=== PATIENT | female | born 1975 | race Caucasian/White ===

== ENCOUNTER 2023-04-04 12:20 | Inpatient (IN) ==
[2023-04-04 14:06] LABS: Albumin Globulin Ratio 1.5 (0.9-2); Albumin Level 4.5 gm/dl (3.4-5.0); BUN Creatinine Ratio 22.2 (10-20); Bilirubin,Total 2.9 mg/dl (0.2-1.0); Calcium 9.3 mg/dl (8.6-10.3); Est GFR (African American) 129.3 ml/min; Est GFR (Non-African American) 111.6 ml/min; Magnesium 1.9 mg/dl (1.7-2.4); Potassium 3.5 mmol/L (3.5-5.1); Total Protein 7.5 gm/dl (6.0-8.3)
[2023-04-04 14:10] LABS: Hematocrit (blood only) 21.1 % (37.0-47.0); Hemoglobin 6.9 g/dl (12.0-16.0); Mean Corpuscular Hemoglobin 28.3 pg (25.0-34.0); Mean Corpuscular Hgb Conc 32.7 g/dL (32.0-36.0); Mean Corpuscular Volume 86.5 fL (80.0-100.0); Mean Platelet Volume 9.8 fL (9.4-12.4); Nucleated RBC # (auto) 0.07 K/uL (0.00-0.12); Nucleated RBC % (auto) 1.9 %; Platelet Count 173 K/uL (130-400); RDW Coefficient of Variation 23.6 % (11.5-14.5); RDW Standard Deviation 63.7 fL (36.4-46.3); Red Blood Count 2.44 M/uL (4.20-5.40); White Blood Count 3.75 K/ul (4.8-10.8)
[2023-04-04 14:11] LABS: Anisocytosis Present; Basophils # (auto) 0.03 K/uL (0.00-0.20); Basophils % (auto) 0.8 %; Eosinophils # (auto) 0.05 K/uL (0.00-0.50); Eosinophils % (auto) 1.3 %; Immature Granulocytes # (auto) 0.08 K/uL (0.01-0.20); Immature Granulocytes % (auto) 2.1 %; Lymphocytes # (auto) 0.98 K/uL (1.20-3.40); Lymphocytes % (auto) 26.1 %; Monocytes # (auto) 0.41 K/uL (0.11-0.59); Monocytes % (auto) 10.9 %; Neutrophils % (auto) 58.8 %; Polychromasia 2+; Tear Drop Cells 1+
[2023-04-04 14:22] LABS: Partial Thromboplastin Ratio 0.9; Partial Thromboplastin Time 25.9 Seconds (21.0-31.0); Prothrombin Time 10.9 Seconds (9.0-12.0)
[2023-04-04 14:29] LABS: Monotest Negative (Negative)
[2023-04-04 14:49] LABS: Lyme Ab IgG w/WB Rflx Negative (Negative); Lyme Ab IgM w/WB Rflx Negative (Negative)
[2023-04-04] MEDS ORDERED: SODIUM CHLORIDE 0.9% 500 ML IV SCH (15:30)
[2023-04-04] MEDS ORDERED: OPTIRAY 320 100ml IV ONE (15:31)
--- NOTE | 2023-04-04 15:53 | CT Scan Report ---
CT OF THE HEAD WITHOUT CONTRAST CLINICAL HISTORY: Headache. COMPARISON STUDY: No previous studies for comparison. TECHNIQUE: Helical axial images of the head were obtained without IV contrast. Automated exposure con trol was utilized for the study. A dose lowering technique was utilized adhering to the principles o f ALARA. FINDINGS: No acute intracranial hemorrhage, midline shift or mass effect is present. The ventricular system is unremarkable. The basal cisterns are patent. No extra-axial collections are present. There are no findings to suggest acute dural sinus thrombosis or acute territorial infarct. No significant calvarial abnormalities are present. Visualized portions of the sinuses and mastoid air cells are oralia ar. IMPRESSION: No acute intracranial findings. ACT 112: Negative or not required by law. Electronically signed by: Lisandro Shaw M.D. 04/04/2023 3:52 PM
--- NOTE | 2023-04-04 16:02 | CT Scan Report ---
CT OF THE ABDOMEN AND PELVIS WITH CONTRAST CLINICAL HISTORY: Left upper quadrant pain. COMPARISON STUDY: None. TECHNIQUE: Following IV administration of 92 mL of Optiray, axial images of the abdomen and pelvis we re obtained from the lung bases to the proximal femurs. Images were reviewed in the axial, sagittal, and coronal planes. IV contrast was administered without complication. Automated exposure control wa s utilized for the study. A dose lowering technique was utilized adhering to the principles of ALARA . CT DOSE: 1951.28 mGy.cm FINDINGS: Lung bases are unremarkable. No pneumatosis, free air or portal venous gas is present. No h epatic lesions are present. There is probable hepatic steatosis. Mild hepatomegaly is noted. Liver me asures 20.2 cm in maximal dimension. No biliary or pancreatic ductal dilatation is present. The adren al glands, kidneys and pancreas are unremarkable. There is moderate splenomegaly. Spleen measures 17. 7 cm in craniocaudal dimension. There is no evidence for splenic injury. No perisplenic fluid is pres ent. Caliber and wall thickness of small and large bowel are normal. There is no ascites. There is no lymphadenopathy. The appendix is normal. Scattered colonic diverticula are present. There is no evid ence for acute diverticulitis. No acute fractures are identified within the visualized skeletal struc tures. IMPRESSION: 1. Moderate splenomegaly. No evidence for splenic injury. No perisplenic fluid. 2. Mild hepatomegaly and probable hepatic steatosis. 3. No bowel obstruction. No bowel wall thickening. Normal appendix. 4. Scattered colonic diverticula. No evidence for acute diverticulitis. ACT 112: Negative or not required by law. Electronically signed by: Lisandro Shaw M.D. 04/04/2023 4:00 PM
--- NOTE | 2023-04-04 16:05 | Emergency Department Note ---
History of Present Illness General Chief Complaint: Abnormal Labs/Diagnostic Testing Stated Complaint: ABNORMAL LABS, ANEMIA - REFERRED BY MD Time Seen by Provider: 04/04/23 13:19 History of Present Illness Provider Complaint: + abnormal lab Description of abnormal result: Low hemoglobin HPI narrative: 47-year-old female presents emergency department because she reports that her doctor told her she had hemolytic anemia. Patient reports she has never been diagnosed with hemolytic anemia however her family members have a history of spherocytosis. She reports she has been having pain in her left upper quadrant and headaches. She reports no vaginal bleeding or hematuria. No melena or hematochezia. No dysuria. Home Medications Medication Instructions Recorded Confirmed Type potassium chloride 10 mEq 10 meq PO DAILY #30 tabs 03/06/23 04/04/23 Rx tablet,extended release albuterol sulfate 90 mcg/actuation 2 puff inhalation Q4H PRN Wheezing 04/04/23 04/04/23 History aerosol inhaler epinephrine 0.3 mg/0.3 mL 0.3 mg IM DIRECTED 04/04/23 04/04/23 History injection, auto-injector folic acid 1 mg tablet 1 mg PO BID #60 tabs 04/04/23 04/04/23 Rx losartan 50 mg tablet 50 mg PO DAILY #30 tabs 04/04/23 04/04/23 Rx Allergies Allergy/AdvReac Type Severity Reaction Status Date / Time hydrochlorothiazide AdvReac hemolytic Verified 04/04/23 16:22 anemia Past Med/Surg History Medical History Abnormal glucose delivery delivered x2 Hypokalemia Resistant hypertension Restless legs Surgical History History of section x 2 2013, 2015 Family History Father , age 72 Diabetes, Onset Age: 70 Heart disease, Onset Age: 47 [place] age 47 CABG 60s Hole in heart repaired congenital Coronary heart disease Colonic polyp Sister Seizure Mother Hypertension Other Spherocytosis Denies family history of Ovarian cancer Prostate cancer Deep vein thrombosis Dyslipidemia Bipolar disorder Depression Myocardial infarction Breast cancer Lung cancer COPD (chronic obstructive pulmonary disease) Colorectal cancer Pulmonary embolism Cancer Asthma Social History Smoking Status: Former smoker Age Started Using Tobacco: 17; Age Quit Using Tobacco: 39; packs per day: 0.5; Second Hand Exposure: No; Do You Dip or Chew Tobacco: No; Hx Alcohol Use: Yes Alcohol type: wine Alcohol Intake Frequency: Monthly or Less Hx Substance Use: No Preferred Language: Kiswahili Communication Ability: Effective marital status: Current Living Situation: Family Current Living Situation Comment: and 3 children current occupational status: employed 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 How many Children do You have: 3 Feels Safe at Home: Yes Childhood Exposure to Second-Hand Smoke: No Diet: regular Dental Care, Regularly: No Physical Activity Frequency: 3-4 Times per Week Physical Exam Vital Signs: Vital Signs - 24 hr 04/04/23 12:28 04/04/23 15:00 Temperature 37.0 C Temperature Source Temporal Artery Sc an Pulse Rate 112 H Pulse Rate [Left F vee] 111 H Pulse Rhythm Regular Pulse Strength Normal Respiratory Rate 20 18 Respiratory Effort / Characteristics Non-Labored Sponta neous Respiratory Depth Normal Respiratory Patter n Regular Blood Pressure 149/80 H Blood Pressure [Le ft Arm] 122/76 Blood Pressure Reina n 103 Blood Pressure Reina n [Left Arm] 91 Blood Pressure Pos ition Sitting Blood Pressure Pos ition [Left Arm] Sitting Pulse Oximetry 97 94 Oxygen Delivery Me thod Room Air Room Air Sepsis Recent Feve r Within 48 Hours No Sepsis New/Unexpla ined Change in Men dorothy Status No Sepsis Action Take n by Nursing No Action Required Physical Exam: Physical Exam HENT: Exam performed. -Head: Normocephalic and atraumatic. -Mouth/Throat: The oropharynx is clear and moist. No trismus in the jaw. No dental abscesses or uvula swelling. No oropharyngeal exudate or tonsillar abscesses. EYES: Conjunctivae and EOM are normal. Pupils are equal, round, and reactive to light. Right eye exhibits no discharge. Left eye exhibits no discharge. No scleral icterus. NECK: Normal range of motion. Neck supple. No JVD present. CV: Normal rate, regular rhythm, normal heart sounds and intact distal pulses. There is no peripheral edema. Palpable radial pulses bue. PULM/CHEST: Effort normal and breath sounds normal. No respiratory distress. No stridor. She has no wheezes. She has no rales. ABD: The abdomen is soft. There is no tenderness. There is no rebound, no gu arding MUSC/SKEL: Normal range of motion. There is no peripheral edema, tenderness or deformity. LYMPH: No cervical adenopathy. NEURO: She is alert and oriented to person, place, and time. She has normal strength. No cranial nerve deficit or sensory deficit. Coordination and gait normal. GCS eye subscore is 4. GCS verbal subscore is 5. GCS motor subscore is 6. Cerebellar tests wnl. SKIN: Skin is warm and dry. She is not diaphoretic. PSYCH: She has a normal mood and affect. Behavior is normal. Judgment and thought content normal. Course Course 1319: The patient was evaluated in room C1. A complete history and physical exam was performed Cardiac monitoring: An order was placed for continuous cardiac monitoring. The monitor shows a rate of 100 with sinus rhythm interpreted by ok 1611: Vital signs stable. Labs show hemoglobin of 6.9. White blood cell count 3.75. Teardrop cells 1+ polychromasia 2+. Coagulation studies within normal limits. Total bilirubin 2.9 AST 82 ALT 64 mono babesiosis smear anaplasmosis smear Lyme negative. Discussed case with hematology oncology Dr. Granger. She recommends transfusing the patient 1 unit packed red blood cells, obtaining a folate level, serum iron level, B12 level, ferritin level total iron binding capacity level, haptoglobin level and to admit the patient to the medicine team. [facility] hospitalist team will be made aware. Administered Medications Discontinued Medications Ioversol (Optiray 320 100ml) 92 ml IV ONCE ONE Stop: 04/04/23 15:32 Last Admin: 04/04/23 15:32 Dose: 92 ml Documented By: ORACIO Medical Decision Making Laboratory Data Attestation: I reviewed the patient's lab results. 04/04/23 13:20 04/04/23 13:35 Lab Results 04/04/23 04/04/23 04/04/23 Range/Units 13:20 13:20 13:20 WBC 3.75 L (4.8-10.8) K/ul RBC 2.44 L (4.20-5.40) M/uL Hgb 6.9 L* (12.0-16.0) g/dl Hct 21.1 L (37.0-47.0) % MCV 86.5 (80.0-100.0) fL MCH 28.3 (25.0-34.0) pg MCHC 32.7 (32.0-36.0) g/dL RDW Std Deviation 63.7 H (36.4-46.3) fL RDW Coeff of Ophelia 23.6 H (11.5-14.5) % Plt Count 173 (130-400) K/uL MPV 9.8 (9.4-12.4) fL Immature Gran % (Auto) 2.1 % Neut % (Auto) 58.8 % Lymph % (Auto) 26.1 % [place] % (Auto) 10.9 % Eos % (Auto) 1.3 % Baso % (Auto) 0.8 % Neut # (Auto) 2.20 (1.40-6.50) K/uL Lymph # (Auto) 0.98 L (1.20-3.40) K/uL [place] # (Auto) 0.41 (0.11-0.59) K/uL Eos # (Auto) 0.05 (0.00-0.50) K/uL Baso # (Auto) 0.03 (0.00-0.20) K/uL Immature Gran # (Auto) 0.08 (0.01-0.20) K/uL Absolute Nucleated RBC 0.07 (0.00-0.12) K/uL Nucleated RBC % (auto) 1.9 % Polychromasia 2+ Anisocytosis Present Tear Drop Cells 1+ PT (9.0-12.0) Seconds INR (0.9-1.1) APTT (21.0-31.0) Seconds PTT Ratio Sodium (136-145) mmol/L Potassium (3.5-5.1) mmol/L Chloride (98-107) mmol/L Carbon Dioxide (21-32) mmol/L Anion Gap (3-11) BUN (6-23) mg/dl Creatinine (0.6-1.2) mg/dl Est Cr Clr Drug Dosing ml/min Est GFR ( Amer) ml/min Est GFR (Non-Af Amer) ml/min BUN/Creatinine Ratio (10-20) Glucose (70-99(Fasting)) mg/dl Calcium (8.6-10.3) mg/dl Magnesium (1.7-2.4) mg/dl Total Bilirubin (0.2-1.0) mg/dl AST (13-39) U/L ALT (7-52) U/L Alkaline Phosphatase (34-104) U/L Ammonia Total Protein (6.0-8.3) gm/dl Albumin (3.4-5.0) gm/dl Globulin (2.5-4.0) gm/dl Albumin/Globulin Ratio (0.9-2) Lipase (11-82) U/L Anaplasma Smear See Comment Babesia Smear See Comment Lyme Disease IgG Ab (Negative) Lyme Disease IgM Ab (Negative) Monoscreen (Negative) Blood Type O Negative Antibody Screen NEGATIVE 04/04/23 04/04/23 04/04/23 Range/Units 13:22 13:35 13:36 WBC (4.8-10.8) K/ul RBC (4.20-5.40) M/uL Hgb (12.0-16.0) g/dl Hct (37.0-47.0) % MCV (80.0-100.0) fL MCH (25.0-34.0) pg MCHC (32.0-36.0) g/dL RDW Std Deviation (36.4-46.3) fL RDW Coeff of Ophelia (11.5-14.5) % Plt Count (130-400) K/uL MPV (9.4-12.4) fL Immature Gran % (Auto) % Neut % (Auto) % Lymph % (Auto) % [place] % (Auto) % Eos % (Auto) % Baso % (Auto) % Neut # (Auto) (1.40-6.50) K/uL Lymph # (Auto) (1.20-3.40) K/uL [place] # (Auto) (0.11-0.59) K/uL Eos # (Auto) (0.00-0.50) K/uL Baso # (Auto) (0.00-0.20) K/uL Immature Gran # (Auto) (0.01-0.20) K/uL Absolute Nucleated RBC (0.00-0.12) K/uL Nucleated RBC % (auto) % Polychromasia Anisocytosis Tear Drop Cells PT 10.9 (9.0-12.0) Seconds INR 1.0 (0.9-1.1) APTT 25.9 (21.0-31.0) Seconds PTT Ratio 0.9 Sodium 135 L (136-145) mmol/L Potassium 3.5 (3.5-5.1) mmol/L Chloride 100 (98-107) mmol/L Carbon Dioxide 28 (21-32) mmol/L Anion Gap 7 (3-11) BUN 12 (6-23) mg/dl Creatinine 0.54 L (0.6-1.2) mg/dl Est Cr Clr Drug Dosing 124.0 ml/min Est GFR ( Amer) 129.3 ml/min Est GFR (Non-Af Amer) 111.6 ml/min BUN/Creatinine Ratio 22.2 H (10-20) Glucose 145 H (70-99(Fasting)) mg/dl Calcium 9.3 (8.6-10.3) mg/dl Magnesium 1.9 (1.7-2.4) mg/dl Total Bilirubin 2.9 H (0.2-1.0) mg/dl AST 82 H (13-39) U/L ALT 64 H (7-52) U/L Alkaline Phosphatase 47 (34-104) U/L Ammonia Total Protein 7.5 (6.0-8.3) gm/dl Albumin 4.5 (3.4-5.0) gm/dl Globulin 3.0 (2.5-4.0) gm/dl Albumin/Globulin Ratio 1.5 (0.9-2) Lipase 52 (11-82) U/L Anaplasma Smear Babesia Smear Lyme Disease IgG Ab Negative (Negative) Lyme Disease IgM Ab Negative (Negative) Monoscreen Negative (Negative) Blood Type Antibody Screen 04/04/23 Range/Units 14:50 WBC (4.8-10.8) K/ul RBC (4.20-5.40) M/uL Hgb (12.0-16.0) g/dl Hct (37.0-47.0) % MCV (80.0-100.0) fL MCH (25.0-34.0) pg MCHC (32.0-36.0) g/dL RDW Std Deviation (36.4-46.3) fL RDW Coeff of Ophelia (11.5-14.5) % Plt Count (130-400) K/uL MPV (9.4-12.4) fL Immature Gran % (Auto) % Neut % (Auto) % Lymph % (Auto) % [place] % (Auto) % Eos % (Auto) % Baso % (Auto) % Neut # (Auto) (1.40-6.50) K/uL Lymph # (Auto) (1.20-3.40) K/uL [place] # (Auto) (0.11-0.59) K/uL Eos # (Auto) (0.00-0.50) K/uL Baso # (Auto) (0.00-0.20) K/uL Immature Gran # (Auto) (0.01-0.20) K/uL Absolute Nucleated RBC (0.00-0.12) K/uL Nucleated RBC % (auto) % Polychromasia Anisocytosis Tear Drop Cells PT (9.0-12.0) Seconds INR (0.9-1.1) APTT (21.0-31.0) Seconds PTT Ratio Sodium (136-145) mmol/L Potassium (3.5-5.1) mmol/L Chloride (98-107) mmol/L Carbon Dioxide (21-32) mmol/L Anion Gap (3-11) BUN (6-23) mg/dl Creatinine (0.6-1.2) mg/dl Est Cr Clr Drug Dosing ml/min Est GFR ( Amer) ml/min Est GFR (Non-Af Amer) ml/min BUN/Creatinine Ratio (10-20) Glucose (70-99(Fasting)) mg/dl Calcium (8.6-10.3) mg/dl Magnesium (1.7-2.4) mg/dl Total Bilirubin (0.2-1.0) mg/dl AST (13-39) U/L ALT (7-52) U/L Alkaline Phosphatase (34-104) U/L Ammonia Cancelled Total Protein (6.0-8.3) gm/dl Albumin (3.4-5.0) gm/dl Globulin (2.5-4.0) gm/dl Albumin/Globulin Ratio (0.9-2) Lipase (11-82) U/L Anaplasma Smear Babesia Smear Lyme Disease IgG Ab (Negative) Lyme Disease IgM Ab (Negative) Monoscreen (Negative) Blood Type Antibody Screen Imaging Data Attestation: I personally reviewed and interpreted this imaging study as follows: My Impression: CT head: No [facility] Radiologist's Impression: Abdomen/Pelvis CT 04/04/23 13:36 CT OF THE ABDOMEN AND PELVIS WITH CONTRAST CLINICAL HISTORY: Left upper quadrant pain. COMPARISON STUDY: None. TECHNIQUE: Following IV administration of 92 mL of Optiray, axial images of the abdomen and pelvis were obtained from the lung bases to the proximal femurs. Images were reviewed in the axial, sagittal, and coronal planes. IV contrast was administered without complication. Automated exposure control was utilized for the study. A dose lowering technique was utilized adhering to the principles of ALARA. CT DOSE: 1951.28 mGy.cm FINDINGS: Lung bases are unremarkable. No pneumatosis, free air or portal venous gas is present. No hepatic lesions are present. There is probable hepatic steatosis. Mild hepatomegaly is noted. Liver measures 20.2 cm in maximal dimension. No biliary or pancreatic ductal dilatation is present. The adrenal glands, kidneys and pancreas are unremarkable. There is moderate splenomegaly. Spleen measures 17.7 cm in craniocaudal dimension. There is no evidence for splenic injury. No perisplenic fluid is present. Caliber and wall thickness of small and large bowel are normal. There is no ascites. There is no lymphadenopathy. The appendix is normal. Scattered colonic diverticula are present. There is no evidence for acute diverticulitis. No acute fractures are identified within the visualized skeletal structures. IMPRESSION: 1. Moderate splenomegaly. No evidence for splenic injury. No perisplenic fluid. 2. Mild hepatomegaly and probable hepatic steatosis. 3. No bowel obstruction. No bowel wall thickening. Normal appendix. 4. Scattered colonic diverticula. No evidence for acute diverticulitis. ACT 112: Negative or not required by law. Electronically signed by: Lisandro Shaw M.D. 04/04/2023 4:[address] 04/04/23 13:36 CT OF THE HEAD WITHOUT CONTRAST CLINICAL HISTORY: Headache. COMPARISON STUDY: No previous studies for comparison. TECHNIQUE: Helical axial images of the head were obtained without IV contrast. Automated exposure control was utilized for the study. A dose lowering technique was utilized adhering to the principles of ALARA. FINDINGS: No acute intracranial hemorrhage, midline shift or mass effect is present. The ventricular system is unremarkable. The basal cisterns are patent. No extra-axial collections are present. There are no findings to suggest acute dural sinus thrombosis or acute territorial infarct. No significant calvarial abnormalities are present. Visualized portions of the sinuses and mastoid air cells are clear. IMPRESSION: No acute intracranial findings. ACT 112: Negative or not required by law. Electronically signed by: Lisandro Shaw M.D. 04/04/2023 3:52 PM ECG Data Attestation: I personally reviewed and interpreted this ECG as follows: Rate (beats per minute): 105 Rhythm: sinus tachycardia Findings: no ST depression, no ST elevation or no prolonged QT MDM Narrative 1319: The patient was evaluated in room C1. A complete history and physical exam was performed Cardiac monitoring: An order was placed for continuous cardiac monitoring. The monitor shows a rate of 100 with sinus rhythm interpreted by me 1611: Vital signs stable. Labs show hemoglobin of 6.9. White blood cell count 3.75. Teardrop cells 1+ polychromasia 2+. Coagulation studies within normal limits. Total bilirubin 2.9 AST 82 ALT 64 mono babesiosis smear anaplasmosis smear Lyme negative. Discussed case with hematology oncology Dr. Granger. She recommends transfusing the patient 1 unit packed red blood cells, obtaining a folate level, serum iron level, B12 level, ferritin level total iron binding capacity level, haptoglobin level and to admit the patient to the medicine team. [facility] hospitalist team will be made aware. Impression & Plan Hemolytic anemia Critical Care Time Critical Care Time: Yes Total Critical Care Time: 48 I have personally spent greater than 48 minutes of critical care time in the direct management of this patient. This includes bedside care, interpretation of diagnostic studies, and testing, discussion with consultants, patient, and family members, and other required patient management activities. This 48 minutes is in excess of all separately billable procedures. Discharge Plan Visit Data Chief Complaint: Abnormal Labs/Diagnostic Testing Stated Complaint: ABNORMAL LABS, ANEMIA - REFERRED BY MD ED Provider: Justo Quintana Discharge Problem: Hemolytic anemia Patient Disposition: Admitted As Inpatient Forms Stand Alone Forms: [facility] Prescriptions Prescriptions: No Action potassium chloride 10 mEq tablet extended release 10 meq PO DAILY Qty: 30 11RF losartan 50 mg tablet 50 mg PO DAILY Qty: 30 2RF folic acid 1 mg tablet 1 mg PO BID Qty: 60 2RF epinephrine 0.3 mg/0.3 mL auto-injector 0.3 mg IM DIRECTED albuterol sulfate 90 mcg/actuation HFA aerosol inhaler 2 puff INHALATION Q4H PRN (Reason: Wheezing) Referrals Referrals: Erick Cabrales MD [Primary Care Provider] -
[2023-04-04] MEDS ORDERED: SODIUM CHLORIDE 0.9% 250 ML IV PRN (16:20)
--- NOTE | 2023-04-04 16:48 | History & Physical Report ---
Date of Service April 04, 2023 Assessment & Plan (1) Hemolytic anemia: Plan: B12, folate, iron studies, retic count, Direct matilda, repeat LDH, haptoglobin, peripheral smear Transfuse 1 unit packed RBCs, repeat CBC in AM, aim Hgb > 7 or symptomatic Solu-medrol 1mg/kg/day No infective cause found but suspect she has a viral illness of the last week. UA negative for infection. Sinus pain intermittent. WBC reduced. Not meningitic. Consult hematology (2) Hypokalemia: Plan: Prior diagnoseis secondary to HCTZ use, now discontinue. Continue potassuim supplementation for now as low normal but suspect can be stopped during admission or on discharge (3) Benign essential hypertension: Plan: Continue losartan 50mg PO daily (4) Thalassemia: Plan: ?spherocytosis given normal MCV and family history of this. See peripheral smear as above (5) Restless legs: Plan VTE Prophyalxis - no chemical prophyalxis due to anemia Diet - regular Disposition - admit to med/tele Admission and Anticipated Discharge Date Admission Date: April 04, 2023 History of Present Illness Chief Complaint: Anemia Primary Care Provider: Erick Cabrales MD Jaleesa Dillon is a 47 year old female with thalassemia who presents to the ER on advice of her primary care physician due to hemoglobin of 7.2. She has a history of worsening anemia which she puts down to her thalassemia when she has infections but never required a blood transfusions before in the past. She reports having a generalized flu-like illness with generalized myalgias, transient headaches, dry eyes, shortness of breath and dizziness for the last week. 4 days ago she started having chills and fever with mild neck pain. She went to the ER in [place] and was noted to be anemic and was advised to follow up with hematology. She subsequently followed up with her PCP who repeated lab work showing her getting more anemia yesterday with hemoglobin 9.2 -> 7.3 therefore was advised to come to the ER today. She has also noticed her skin bec oming more yellow over the last 4 days. She reports a family hisotry of spherocytosis but denies ever having this diagnosis herself. She has never needed a blood transfusion before. She denies any cough, nasal congestion, postnasal drip, sore throat or new gastrointestinal symptoms. She notes her urine has smelled differently but no dysuria. She has noticed intermittent right sided sinus pain. She does not LUQ abdominal pain since 17 years old which is no different than usual. Occasional gets constipated. Allergies Allergy/AdvReac Type Severity Reaction Status Date / Time hydrochlorothiazide AdvReac hemolytic Verified 04/04/23 16:22 anemia Home Medications Medication Instructions Recorded Confirmed Type potassium chloride 10 mEq 10 meq PO DAILY #30 tabs 03/06/23 04/04/23 Rx tablet,extended release albuterol sulfate 90 mcg/actuation 2 puff inhalation Q4H PRN Wheezing 04/04/23 04/04/23 History aerosol inhaler epinephrine 0.3 mg/0.3 mL 0.3 mg IM DIRECTED 04/04/23 04/04/23 History injection, auto-injector folic acid 1 mg tablet 1 mg PO BID #60 tabs 04/04/23 04/04/23 Rx losartan 50 mg tablet 50 mg PO DAILY #30 tabs 04/04/23 04/04/23 Rx Past Med/Surg History Medical History Abnormal glucose delivery delivered x2 Hypokalemia Resistant hypertension Restless legs Surgical History History of section x 2 2013, 2015 Family History Father , age 72 Diabetes, Onset Age: 70 Heart disease, Onset Age: 47 [place] age 47 CABG 60s Hole in heart repaired congenital Coronary heart disease Colonic polyp Sister Seizure Mother Hypertension Other Spherocytosis Denies family history of Ovarian cancer Prostate cancer Deep vein thrombosis Dyslipidemia Bipolar disorder Depression Myocardial infarction Breast cancer Lung cancer COPD (chronic obstructive pulmonary disease) Colorectal cancer Pulmonary embolism Cancer Asthma Social History Smoking Status: Never smoker Age Started Using Tobacco: 17; Age Quit Using Tobacco: 39; packs per day: 0.5; Second Hand Exposure: No; Do You Dip or Chew Tobacco: No; Hx Alcohol Use: Yes Alcohol type: wine Alcohol Intake Frequency: Monthly or Less Hx Substance Use: No Preferred Language: Chinese Communication Ability: Effective Industrial Plant 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 Required: No Beliefs That Will Affect Care: None marital status: Current Living Situation: Spouse Current Living Situation Comment: and 3 children current occupational status: employed 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 How many Children do You have: 3 Feels Safe at Home: Yes Safety Concerns: Feels Safe At This Time Childhood Exposure to Second-Hand Smoke: No Diet: regular Dental Care, Regularly: No Physical Activity Frequency: 3-4 Times per Week Assistive Devices: None Review of Systems Review of Systems: All systems reviewed & are unremarkable except as noted in HPI & below Physical Exam Constitutional: WD/WN, vitals as above Eyes: icteric sclera, pale conjunctiva ENMT: external ear and nose normal, oropharynx normal pale mucus membranes Respiratory: normal respiratory effort, lungs clear to auscultation Cardiovascular: RRR, no murmur, no edema Gastrointestinal (Abdomen): Inspection/Auscultation: abdomen normal to inspection; abdomen not distended Percussion/Palpation: + abdomen tender (LUQ mild); no guarding and abdomen not rigid Musculoskeletal: no cyanosis or clubbing, extremities motor strength 5/5 Skin: + jaundice Neurologic: moves all extremities and awake; no focal motor deficits and not confused Psychiatric: A+Ox3, euthymic affect Genitourinary: no CVA tenderness Results & Data Results & Data Vital Signs (Past 12 Hours) Vital Signs Temp Pulse Pulse Resp BP BP Pulse Ox 04/04/23 15:00 111 H 18 122/76 94 04/04/23 12:28 37.0 C 112 H 20 149/80 H 97 O2 Del Method 04/04/23 15:00 Room Air 04/04/23 12:28 Room Air Laboratory Results Abnormal lab results 04/04/23 04/04/23 Range/Units 13:20 13:35 WBC 3.75 L (4.8-10.8) K/ul RBC 2.44 L (4.20-5.40) M/uL Hgb 6.9 L* (12.0-16.0) g/dl Hct 21.1 L (37.0-47.0) % RDW Std Deviation 63.7 H (36.4-46.3) fL RDW Coeff of Ophelia 23.6 H (11.5-14.5) % Lymph # (Auto) 0.98 L (1.20-3.40) K/uL Sodium 135 L (136-145) mmol/L Creatinine 0.54 L (0.6-1.2) mg/dl BUN/Creatinine Ratio 22.2 H (10-20) Glucose 145 H (70-99(Fasting)) mg/dl Total Bilirubin 2.9 H (0.2-1.0) mg/dl AST 82 H (13-39) U/L ALT 64 H (7-52) U/L Diagnostic Findings CT OF THE HEAD WITHOUT CONTRAST CLINICAL HISTORY: Headache. COMPARISON STUDY: No previous studies for comparison. TECHNIQUE: Helical axial images of the head were obtained without IV contrast. Automated exposure control was utilized for the study. A dose lowering technique was utilized adhering to the principles of ALARA. FINDINGS: No acute intracranial hemorrhage, midline shift or mass effect is present. The ventricular system is unremarkable. The basal cisterns are patent. No extra-axial collections are present. There are no findings to suggest acute d ural sinus thrombosis or acute territorial infarct. No significant calvarial abnormalities are present. Visualized portions of the sinuses and mastoid air cells are clear. IMPRESSION: No acute intracranial findings. CT OF THE ABDOMEN AND PELVIS WITH CONTRAST CLINICAL HISTORY: Left upper quadrant pain. COMPARISON STUDY: None. TECHNIQUE: Following IV administration of 92 mL of Optiray, axial images of the abdomen and pelvis were obtained from the lung bases to the proximal femurs. Images were reviewed in the axial, sagittal, and coronal planes. IV contrast was administered without complication. Automated exposure control was utilized for the study. A dose lowering technique was utilized adhering to the principles of ALARA. CT DOSE: 1951.28 mGy.cm FINDINGS: Lung bases are unremarkable. No pneumatosis, free air or portal venous gas is present. No hepatic lesions are present. There is probable hepatic steatosis. Mild hepatomegaly is noted. Liver measures 20.2 cm in maximal dimension. No biliary or pancreatic ductal dilatation is present. The adrenal glands, kidneys and pancreas are unremarkable. There is moderate splenomegaly. Spleen measures 17.7 cm in craniocaudal dimension. There is no evidence for splenic injury. No perisplenic fluid is present. Caliber and wall thickness of small and large bowel are normal. There is no ascites. There is no lympha denopathy. The appendix is normal. Scattered colonic diverticula are present. There is no evidence for acute diverticulitis. No acute fractures are identified within the visualized skeletal structures. IMPRESSION: 1. Moderate splenomegaly. No evidence for splenic injury. No perisplenic fluid. 2. Mild hepatomegaly and probable hepatic steatosis. 3. No bowel obstruction. No bowel wall thickening. Normal appendix. 4. Scattered colonic diverticula. No evidence for acute diverticulitis. Medications Administered ER Medications Given: Normal saline @ 75ml/hr 1 unit of packed red blood cells ECG Rate (beats per minute): 105 Rhythm: normal sinus Findings: no acute ischemic change Comparison ECG Date: no prior available Code Status & VTE Plan Code Status Full VTE Prophylaxis Plan VTE Prophylaxis will be ordered: No PG Care Time/CCT Total # of Minutes Spent Total Time Spent with Patient: Total time spent is greater than 50% in coordination of care (as documented) at patient's floor/unit and/or counseling patient: Coding Level of Care Code 00718 INT INP/OBS CARE MIN Diagnoses Hemolytic anemia D58.9 Hypokalemia E87.6 Benign essential hypertension I10 Thalassemia D56.9 Restless legs G25.81
[2023-04-04 17:30] LABS: Ferritin 214.9 ng/ml (8-388)
--- NOTE | 2023-04-04 17:36 | Electrocardiogram Report ---
Test Reason : Blood Pressure : / mmHG Vent. Rate : 105 BPM Atrial Rate : 105 BPM P-R Int : 140 ms QRS Dur : 084 ms QT Int : 364 ms P-R-T Axes : 050 023 022 degrees QTc Int : 481 ms Sinus tachycardia Cannot rule out Inferior infarct , age undetermined Nonspecific ST abnormality Abnormal ECG No previous ECGs available Confirmed by Rl Pina ([id number]) on 04/04/2023 5:36:17 PM Referred By: REFERRED SELF Confirmed By:Surinder Pina
[2023-04-04 17:39] LABS: Appearance Urine Clear (Clear); Bilirubin Urine Negative (Negative); Blood Urine Negative (Negative); Color Urine Yellow; Glucose Urine UA Negative (Negative); Ketones Urine Negative (Negative); Leukocyte Esterase Urine Negative (Negative); Nitrite Urine Negative (Negative); Protein Urine Negative (Negative); Specific Gravity Urine 1.028 (1.000-1.030); Urobilinogen Urine Negative (Negative)
[2023-04-04 17:55] LABS: Fibrinogen 329 mg/dl (184-400)
[2023-04-04 18:07] LABS: D Dimer 580 ug/L FEU (0-500)
--- NOTE | 2023-04-04 18:24 | XRay Report ---
XR chest 1V portable CLINICAL HISTORY: tachycardia, shortness of breath COMPARISON STUDY: No previous studies for comparison. FINDINGS: Lung volumes are normal. Lungs are clear. There is no pneumothorax or pleural effusion. Car diac size is normal. Mediastinal contours are normal. There is no evidence for pulmonary edema. IMPRESSION: No acute cardiopulmonary findings. ACT 112: Negative or not required by law. Electronically signed by: Lisandro Shaw M.D. 04/04/2023 6:23 PM
[2023-04-04] MEDS ORDERED: methylPREDNISolone 125 MG/2 ML VIAL IV SCH (19:15)
[2023-04-04] MEDS ORDERED: ACETAMINOPHEN 325 MG TAB PO PRN (19:15)
[2023-04-04] MEDS ORDERED: methylPREDNISolone 75 MG in SYRINGE 0 ML IV SCH (19:30)
[2023-04-04] MEDS: FOLIC ACID 1 MG TAB PO SCH (20:58)
[2023-04-04] MEDS ORDERED: diphenhydrAMINE Capsule 25 MG CAP PO ONE (21:45)
--- NOTE | 2023-04-05 07:36 | Oncology Consultation ---
Date of Consultation April 05, 2023 Assessment & Plan (1) Hemolytic anemia: Plan -47-year-old who presented with hemolytic anemia. Due to concern for autoimmune hemolytic anemia, had recommended starting steroids pending workup. However, work-up so far is more suggestive of nonimmune hemolytic anemia with negative USHA/[place] test. She also has splenomegaly. No evidence at this time of thalassemia given normal MCV. 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 Awaiting peripheral smear review to confirm this. -Has appropriately responded to 1 unit PRBC transfusion with hemoglobin improving to 7.8. Bilirubin also improving. Since she complains of palpitations, would recommend considering transfusion with another unit of PRBC prior to discharge. -She has appropriately elevated reticulocyte count and so there is no evidence at this time to suggest aplastic crisis. Can however check parvovirus IgG and IgM given complaints of myalgias and fever. -Suspect that worsening hemolysis may have been triggered by hydrochlorothiazide or viral infection. She will need appropriate follow-up with hematology outpatient (She lives in [place] and can be followed by hematology there) . Would recommend rechecking CBC, LDH, bilirubin and reticulocyte count later this week. Thank you for this consult. Hematology will sign off at this time. Please feel free to call if you have any further questions History of Present Illness Reason for Consultation: Anemia Attending Physician: Lit Guthrie MD History of Present Illness 47-year-old female with family history significant for hereditary spherocytosis and thalassemia who presented to the ER [facility] on advice by PCP due to worsening anemia. Per patient, she indicates that her hemoglobin usually ranges around 10 g/dl but has never had formal testing for thalassemia or hereditary spherocytosis. States that she follows primarily with her PCP and has never been evaluated by ventilation equipment tender. Labs obtained ED significant for LDH of 707, total bilirubin of 3.6 with pending haptoglobin. Anemia labs including iron studies, vitamin B12 and folate levels were normal. .CT abdomen and pelvis revealed moderate splenomegaly and mild hepatomegaly.Due to concern for autoimmune hemolytic anemia, I had recommended starting prednisone 1 mg/kg/day pending further work-up Including peripheral smear review and [place] test. She received 1 unit of PRBC transfusion yesterday Complains of myalgias, fever and chills which were noticed about a week ago.Also complains of palpitations. She indicates that she was started on hydrochlorothiazide about 1-1/2 months ago which seems to have triggered a lot of abnormalities in her labs including electrolytes. Denies being around anyone who is sick. 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.States that her sister has hereditary spherocytosis and grandfather has thalassemia Allergies Allergy/AdvReac Type Severity Reaction Status Date / Time hydrochlorothiazide AdvReac hemolytic Verified 04/04/23 16:22 anemia Home Medications Medication Instructions Recorded Confirmed Type potassium chloride 10 mEq 10 meq PO DAILY #30 tabs 03/06/23 04/04/23 Rx tablet,extended release albuterol sulfate 90 mcg/actuation 2 puff inhalation Q4H PRN Wheezing 04/04/23 04/04/23 History aerosol inhaler epinephrine 0.3 mg/0.3 mL 0.3 mg IM DIRECTED 04/04/23 04/04/23 History injection, auto-injector folic acid 1 mg tablet 1 mg PO BID #60 tabs 04/04/23 04/04/23 Rx losartan 50 mg tablet 50 mg PO DAILY #30 tabs 04/04/23 04/04/23 Rx Patient History Medical History Abnormal glucose delivery delivered x2 Hypokalemia Resistant hypertension Restless legs Surgical History History of section x 2 2013, 2015 Family History Father , age 72 Diabetes, Onset Age: 70 Heart disease, Onset Age: 47 [place] age 47 CABG 60s Hole in heart repaired congenital Coronary heart disease Colonic polyp Sister Seizure Mother Hypertension Other Spherocytosis Denies family history of Ovarian cancer Prostate cancer Deep vein thrombosis Dyslipidemia Bipolar disorder Depression Myocardial infarction Breast cancer Lung cancer COPD (chronic obstructive pulmonary disease) Colorectal cancer Pulmonary embolism Cancer Asthma Social History Smoking Status: Never smoker Age Started Using Tobacco: 17; Age Quit Using Tobacco: 39; packs per day: 0.5; Second Hand Exposure: No; Do You Dip or Chew Tobacco: No; Hx Alcohol Use: Yes Alcohol type: wine Alcohol Intake Frequency: Monthly or Less Hx Substance Use: No Preferred Language: Trinidadian Communication Ability: Effective Copy Preparer Required: No Beliefs That Will Affect Care: None marital status: Current Living Situation: Spouse Current Living Situation Comment: and 3 children current occupational status: employed 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
[2023-04-05 07:41] LABS: Basophils # (auto) 0.01 K/uL (0.00-0.20); Basophils % (auto) 0.3 %; Eosinophils # (auto) 0.07 K/uL (0.00-0.50); Eosinophils % (auto) 2.1 %; Hematocrit (blood only) 23.5 % (37.0-47.0); Hemoglobin 7.8 g/dl (12.0-16.0); Immature Granulocytes # (auto) 0.08 K/uL (0.01-0.20); Immature Granulocytes % (auto) 2.3 %; Lymphocytes # (auto) 0.81 K/uL (1.20-3.40); Lymphocytes % (auto) 23.8 %; Mean Corpuscular Hemoglobin 29.5 pg (25.0-34.0); Mean Corpuscular Hgb Conc 33.2 g/dL (32.0-36.0); Mean Platelet Volume 9.8 fL (9.4-12.4); Monocytes # (auto) 0.39 K/uL (0.11-0.59); Monocytes % (auto) 11.4 %; Neutrophils # (auto) 2.05 K/uL (1.40-6.50); Neutrophils % (auto) 60.1 %; Nucleated RBC # (auto) 0.04 K/uL (0.00-0.12); Nucleated RBC % (auto) 1.2 %; Platelet Count 142 K/uL (130-400); RDW Coefficient of Variation 23.3 % (11.5-14.5); RDW Standard Deviation 68.7 fL (36.4-46.3); Red Blood Count 2.64 M/uL (4.20-5.40); White Blood Count 3.41 K/ul (4.8-10.8)
--- NOTE | 2023-04-05 07:48 | Hospitalist Progress Note ---
Date of Service April 05, 2023 Assessment & Plan (1) Hemolytic anemia: Plan: Hgb 6.9 on admission B12, folate, iron studies, retic count, Direct matilda, repeat LDH, haptoglobin, peripheral smear Transfuse 1 unit packed RBCs, repeat CBC in AM, aim Hgb > 7 or symptomatic Solu-medrol 1mg/kg/day No infective cause found but suspect she has a viral illness of the last week. UA negative for infection. Sinus pain intermittent. WBC reduced. Not meningitic. Consult hematology 04/05 hgb 7.8, hematology consult pending, haptoglobin/peripheral smear pending (2) Hypokalemia: Plan: Prior diagnoseis secondary to HCTZ use, now discontinue. Continue potassuim supplementation for now as low normal but suspect can be stopped during admission or on discharge (3) Benign essential hypertension: Plan: Continue losartan 50mg PO daily (4) Thalassemia: Plan: ?spherocytosis given normal MCV and family history of this. See peripheral smear as above (5) Restless legs: Plan VTE Prophyalxis - no chemical prophyalxis due to anemia Diet - regular Disposition - admit to med/tele Admission and Anticipated Discharge Date Admission Date: April 04, 2023 Results & Data Results & Data Vital Signs (Past 12 Hours) Vital Signs Temp Pulse Resp BP Pulse Ox 04/04/23 21:03 37.4 C 99 H 16 143/82 H 99 04/04/23 20:10 36.8 C 90 18 143/89 H 100 PG Care Time/CCT Total # of Minutes Spent Total Time Spent with Patient: Total time spent is greater than 50% in coordination of care (as documented) at patient's floor/unit and/or counseling patient: Coding Diagnoses Hemolytic anemia D58.9 Hypokalemia E87.6 Benign essential hypertension I10 Thalassemia D56.9 Restless legs G25.81
[2023-04-05 08:00] LABS: Albumin Globulin Ratio 1.4 (0.9-2); Albumin Level 3.9 gm/dl (3.4-5.0); BUN Creatinine Ratio 17.5 (10-20); Bilirubin,Total 2.8 mg/dl (0.2-1.0); Calcium 8.6 mg/dl (8.6-10.3); Est GFR (African American) 127.1 ml/min; Est GFR (Non-African American) 109.6 ml/min; Globulin 2.7 gm/dl (2.5-4.0); Potassium 4.1 mmol/L (3.5-5.1); Total Protein 6.6 gm/dl (6.0-8.3)
[2023-04-05 08:06] LABS: Anisocytosis Present; Polychromasia 2+; Reticulocyte % 13.5 % (0.5-2.0); Reticulocytes # 0.35 10^6/uL (0.02-0.10); Tear Drop Cells 1+
[2023-04-05] MEDS ORDERED: SODIUM CHLORIDE 0.9% 250 ML IV PRN (08:32)
[2023-04-05] MEDS: FOLIC ACID 1 MG TAB PO SCH (08:38)
[2023-04-05] MEDS ORDERED: LOSARTAN POTASSIUM 50 MG TAB PO SCH (09:00)
[2023-04-05] MEDS ORDERED: POTASSIUM CHLORIDE 10 MEQ TABCR PO SCH (09:00)
--- NOTE | 2023-04-05 10:28 | Discharge Summary ---
Date of Service April 05, 2023 Admission HPI Per Admitting Provider Jaleesa Dillon is a 47 year old female with thalassemia who presents to the ER on advice of her primary care physician due to hemoglobin of 7.2. She has a history of worsening anemia which she puts down to her thalassemia when she has infections but never required a blood transfusions before in the past. She reports having a generalized flu-like illness with generalized myalgias, transient headaches, dry eyes, shortness of breath and dizziness for the last week. 4 days ago she started having chills and fever with mild neck pain. She went to the ER in [place] and was noted to be anemic and was advised to follow up with hematology. She subsequently followed up with her PCP who repeated lab work showing her getting more anemia yesterday with hemoglobin 9.2 -> 7.3 therefore was advised to come to the ER today. She has also noticed her skin becoming more yellow over the last 4 days. She reports a family hisotry of spherocytosis but denies ever having this diagnosis herself. She has never needed a blood transfusion before. She denies any cough, nasal congestion, postnasal drip, sore throat or new gastrointestinal symptoms. She notes her urine has smelled differently but no dysuria. She has noticed intermittent right sided sinus pain. She does not LUQ abdominal pain since 17 years old which is no different than usual. Occasional gets constipated. Admission Exam Per Admitting Provider Constitutional: WD/WN, vitals as above Eyes: icteric sclera, pale conjunctiva ENMT: external ear and nose normal, oropharynx normal pale mucus membranes Respiratory: normal respiratory effort, lungs clear to auscultation Cardiovascular: RRR, no murmur, no edema Gastrointestinal (Abdomen): Inspection/Auscultation: abdomen normal to inspection; abdomen not distended Percussion/Palpation: + abdomen tender (LUQ mild); no guarding and abdomen not rigid Musculoskeletal: no cyanosis or clubbing, extremities motor strength 5/5 Skin: + jaundice Neurologic: moves all extremities and awake; no focal motor deficits and not confused Psychiatric: A+Ox3, euthymic affect Genitourinary: no CVA tenderness Principal Diagnosis Anemia, likely Hereditary Spherocytosis Discharge Exam Constitutional WD/WN, vitals as above ENMT external ear and nose normal, oropharynx normal Respiratory normal respiratory effort, lungs clear to auscultation Cardiovascular RRR, no murmur, no edema Gastrointestinal (Abdomen) Inspection/Auscultation: abdomen normal to inspection; abdomen not distended Percussion/Palpation: + abdomen tender (LUQ mild); no guarding and abdomen not rigid Musculoskeletal no cyanosis or clubbing, extremities motor strength 5/5 Skin + jaundice Neurologic moves all extremities and awake; no focal motor deficits and not confused Psychiatric A+Ox3, euthymic affect Genitourinary no CVA tenderness Discharge Data Allergies Allergy/AdvReac Type Severity Reaction Status Date / Time hydrochlorothiazide AdvReac hemolytic Verified 04/04/23 16:22 anemia Consultations 04/04/23 16:21 ED Decision to Admit Stat 04/04/23 16:35 Consult Hematology Routine Ordered Studies Abdomen/Pelvis CT 04/04/23 13:36 CT OF THE ABDOMEN AND PELVIS WITH CONTRAST CLINICAL HISTORY: Left upper quadrant pain. COMPARISON STUDY: None. TECHNIQUE: Following IV administration of 92 mL of Optiray, axial images of the abdomen and pelvis were obtained from the lung bases to the proximal femurs. Images were reviewed in the axial, sagittal, and coronal planes. IV contrast was administered without complication. Automated exposure control was utilized for the study. A dose lowering technique was utilized adhering to the principles of ALARA. CT DOSE: 1951.28 mGy.cm FINDINGS: Lung bases are unremarkable. No pneumatosis, free air or portal venous gas is present. No hepatic lesions are present. There is probable hepatic steatosis. Mild hepatomegaly is noted. Liver measures 20.2 cm in maximal dimension. No biliary or pancreatic ductal dilatation is present. The adrenal gl ands, kidneys and pancreas are unremarkable. There is moderate splenomegaly. Spleen measures 17.7 cm in craniocaudal dimension. There is no evidence for splenic injury. No perisplenic fluid is present. Caliber and wall thickness of small and large bowel are normal. There is no ascites. There is no lymphadenopathy. The appendix is normal. Scattered colonic diverticula are present. There is no evidence for acute diverticulitis. No acute fractures are identified within the visualized skeletal structures. IMPRESSION: 1. Moderate splenomegaly. No evidence for splenic injury. No perisplenic fluid. 2. Mild hepatomegaly and probable hepatic steatosis. 3. No bowel obstruction. No bowel wall thickening. Normal appendix. 4. Scattered colonic diverticula. No evidence for acute diverticulitis. ACT 112: Negative or not required by law. Electronically signed by: Lisandro Shaw M.D. 04/04/2023 4:[address] 04/04/23 13:36 CT OF THE HEAD WITHOUT CONTRAST CLINICAL HISTORY: Headache. COMPARISON STUDY: No previous studies for comparison. TECHNIQUE: Helical axial images of the head were obtained without IV contrast. Automated exposure control was utilized for the study. A dose lowering technique was utilized adhering to the principles of ALARA. FINDINGS: No acute intracranial hemorrhage, midline shift or mass effect is present. The ventricular system is unremarkable. The basal cisterns are patent. No extra-axial collections are present. There are no findings to suggest acute dural sinus thrombosis or acute territorial infarct. No significant calvarial abnormalities are present. Visualized portions of the sinuses and mastoid air cells are clear. IMPRESSION: No acute intracranial findings. ACT 112: Negative or not required by law. Electronically signed by: Lisandro Shaw M.D. 04/04/2023 3:52 PM Chest X-Ray 04/04/23 16:41 XR chest 1V portable CLINICAL HISTORY: tachycardia, shortness of breath COMPARISON STUDY: No previous studies for comparison. FINDINGS: Lung volumes are normal. Lungs are clear. There is no pneumothorax or pleural effusion. Cardiac size is normal. Mediastinal contours are normal. There is no evidence for pulmonary edema. IMPRESSION: No acute cardiopulmonary findings. ACT 112: Negative or not required by law. Electronically signed by: Lisandro Shaw M.D. 04/04/2023 6:23 PM Chest X-Ray 04/05/23 11:18 XR chest 1V portable HISTORY: Shortness of breath. eval pulm edema COMPARISON: Chest 04/04/2023. FINDINGS: The lungs are clear. Cardiac silhouette is top normal in size. No pleural effusions. No pneumothorax. No evidence for pulmonary edema. IMPRESSION: No acute process. ACT 112: Negative or not required by law. Electronically signed by: Jairon Roman M.D. 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 UA negative for infection. Sinus pain intermittent. WBC reduced. Not meningitic. Consult hematology 04/05 s/p 1u PRBC on admission, hgb 6.9--> 7.8, initially ordered solumedrol, however patient declined this. Discussed w/ Dr Granger, suspects hereditary spherocytosis rather than thalassemia given normal MCV (imaging w/ enlarged spleen as well) Reticulocyte count appropriately elevated and no need for steroids at present and felt additional PRBC/discharge acceptable Peripheral smear/haptoglobin pending at discharge Given additional 1u PRBC prior to discharge/lasix, wanting to go home to see daughters soccer game at 2pm, not wanting to stay Rx for repeat labs this upcoming week to ensure hgb levels stable, can f/u hematology as well. Parvovirus testing sent as well, pending a t dc (2) Hypokalemia: Prior diagnosis secondary to HCTZ use, now discontinued. Continue potassium supplementation for now as low normal but suspect can be stopped during admission or on discharge -- 4.1 and can f/u PCP about stopping this/was given lasix w/ blood prior to discharge (3) Benign essential hypertension: Continued losartan 50mg PO daily -- new rx sent given she had combination pill. discontinued further HCTZ Can f/u PCP for further adjustments as needed (4) Thalassemia: ?spherocytosis given normal MCV and family history of this. See peripheral smear as above (5) Restless legs: Total Time Total Time Spent Total Time Spent (In Minutes): 40 Discharge Plan Discharge Items Patient Disposition: Home - Self-Care Reason For Visit: HEMOLYTIC ANEMIA Discharge Diagnosis: Anemia, suspicion for hereditary spherocytosis Goals: You have been hospitalized for an acute medical problem. During your stay at [facility], we have made an effort to correct the problem that brought you to the hospital while keeping you as comfortable as possible. Medications were used to bring your condition under control and your discharge instructions will include directions for any medications you should take after leaving the hospital. Please make sure you see your Primary Care Provider as part of your follow up plan. Activity: As commented below Non-emergency contact: Primary Care Provider and Oncologist Call non-emergency contact if: you have any medication questions, your symptoms worsen, your pain is concerning for you and you have a fever Follow-up/Referrals: Erick Cabrales MD [Primary Care Provider] - 04/06/23 3:00 pm Felicia Granger MD [Physician] - Diet: Heart Healthy Ambulatory Orders: Complete Blood Count no Diff (Routine) Timeframe: [id number] Location: Determined by Patient Ordered By: Dorene Barrett Add Attending Provider Instructions: You have been hospitalized for anemia. Hematology was consulted and labs were obtained for analysis. This does not appear to be consistent with thalassemia but rather hereditary spherocytosis and your reticulocyte count that tells us if your bone marrow is working to make new red blood cells is elevated and indicates having normal response. This drop is suspected due to the hydrochlorothiazide medication which should be STOPPED but we also sent out for parvovirus as possible source for presentation. We have given you blood while inpatient and repeat labs have improved. You can also follow up with Dr Granger from hematology for ongoing management/issues if needed. You should follow up with primary care for repeat blood counts this week and to monitor your progress after discharge. Orders have been placed to have these drawn this week. Please return to the ER if you have any worsening symptoms. It has been a pleasure being a part of the medical team providing for you while you have been in the hospital. Take care! Pending Studies at Discharge: Yes Studies:: Peripheral Smear, Haptoglobin, Parvovirus testing Stand-Alone Forms: My [facility] [employer], Work/School Release Medications and DC Order Prescriptions: Continued potassium chloride 10 mEq tablet extended release 10 meq PO DAILY Qty: 30 11RF folic acid 1 mg tablet 1 mg PO BID Qty: 60 2RF epinephrine 0.3 mg/0.3 mL auto-injector 0.3 mg IM DIRECTED albuterol sulfate 90 mcg/actuation HFA aerosol inhaler 2 puff INHALATION Q4H PRN (Reason: Wheezing) losartan 50 mg tablet 50 mg PO DAILY Qty: 30 2RF Discharge Orders: Discharge Order (Routine); Ordered 04/05/23 Ordered By: Dorene Barrett Admission Data Admit Date/Time: 04/04/23 17:26 Attending Provider: Lit Guthrie Admit Provider: Noé Johns Primary Care Provider: Erick Cabrales Other Providers: Noé Johns ; Felicia Granger Other Interventions: Discharge Summary Assessment (RN) Last Done: 04/05/23 10:53 Supervising Physician Co-Signing Physician Notes The patient was not seen by me. The chart was reviewed. Case discussed with INDER Lee. Agree with assessment and plan Coding Level of Care Code 34909 INP/OBS DISCH >30 MIN Diagnoses Hemolytic anemia D58.9 Hypokalemia E87.6 Benign essential hypertension I10 Thalassemia D56.9 Restless legs G25.81
[2023-04-05] MEDS ORDERED: FUROSEMIDE 40 MG/4 ML VIAL IV ONE (11:19)
--- NOTE | 2023-04-05 11:44 | XRay Report ---
XR chest 1V portable HISTORY: Shortness of breath. eval pulm edema COMPARISON: Chest 04/04/2023. FINDINGS: The lungs are clear. Cardiac silhouette is top normal in size. No pleural effusions. No pne umothorax. No evidence for pulmonary edema. IMPRESSION: No acute process. ACT 112: Negative or not required by law. Electronically signed by: Jairon Roman M.D. 04/05/2023 11:43 AM
[2023-04-09 22:37] LABS: Babesia microti DNA Not Detected (Not Detected)
[2023-04-10 13:43] LABS: Parvovirus IgG 5.9 (<0.9); Parvovirus IgM 0.2 (<0.9)
== END 2023-04-05 12:06 | disposition home or self-care (01) | DRG 812 ==
LOC: ED 12:20 → 3W 17:26 → SUATTDRO 17:26 → 3W 18:32